=== PATIENT | male | born 1965 | race African-American/Black ===

== ENCOUNTER 2017-02-20 12:01 | Emergency (ER) | payer OTHER ==
[~2017-02-20] VITALS: Ht 182.8 cm; Wt 77.1 kg
[2017-02-20] MEDS ORDERED: CEPHALEXIN500 M1 PO (14:08)
[2017-02-20] MEDS ORDERED: COLCRYS0.6 M1 PO (14:08)
== END 2017-02-20 15:03 | disposition home or self-care (01) ==
LOC: ED 12:01
DX: S91.332A Puncture wound without foreign body, left foot, initial encounter (principal); F17.200 Nicotine dependence, unspecified, uncomplicated; Z98.890 Other specified postprocedural states; W22.8XXA Striking against or struck by other objects, initial encounter; Y93.89 Activity, other specified; Y92.89 Other specified places as the place of occurrence of the external cause; Y99.9 Unspecified external cause status